=== PATIENT | female | born 1940 ===

== ENCOUNTER → 2018-04-23 14:00 | Outpatient (REF) | payer MEDICARE, SELFPAY | LOC: LAB 14:00 | PROVIDERS: Visit Provider Dermatology | DX: B00.1 Herpesviral vesicular dermatitis (principal); L84 Corns and callosities; L57.0 Actinic keratosis; L85.3 Xerosis cutis; Z08 Encounter for follow-up examination after completed treatment for malignant neoplasm; Z85.828 Personal history of other malignant neoplasm of skin | CPT/HCPCS: 87529 ==